=== PATIENT | male | born 1960 | race Caucasian/White ===

== ENCOUNTER 2018-05-09 13:39 | Emergency (ER) | payer MEDICARE, MEDICAID ==
[~2018-05-09] VITALS: Ht 177.8 cm; Wt 84.9 kg
[~2018-05-09 13:39] MED LIST: CA C1TAB60 PO; CHOLESTEROL MED; FOLI-17 PO; METH2.5T PO; NITR100C56 PO; OXYC5SOL8 PO; PHEN100T90 PO; TAMS-11 PO; [UNRECOGNIZED DRUG - REMARK]
[2018-05-09 13:48] VITALS: BP 119/76
[2018-05-09] MEDS ORDERED: ACETAMINOPHEN 500 MG TABLET ONE (14:14)
--- NOTE | 2018-05-09 14:22 | NUR ---
PT. IS A & O X 4 WITH C/O A COUGH. PT. STATES HE IS IMMUNOCOMPROMISED. PT.'S LUNGS ARE CTA. MM ARE PINK AND MOIST WITH PULSES +2 THROUGHOUT. PT. WAS TAKEN TO XRAY. PT. WAS MEDICATED ORDERED.
[2018-05-09] MEDS ORDERED: ACETAMINOPHEN 500 MG TABLET PO ONE (14:30)
[2018-05-09 14:44] LABS: RAPID INFLUENZA A Negative (Negative); RAPID INFLUENZA B Negative (Negative)
[2018-05-09 14:48] LABS: BASOPHILS # (AUTO) 0.03 x10^3/uL (0-0.1); BASOPHILS % (AUTO) 0 % (0-1); EOSINOPHILS # (AUTO) 0.14 x10^3/uL (0-0.4); EOSINOPHILS % (AUTO) 2 % (1-7); LYMPHOCYTES # (AUTO) 0.52 x10^3/uL (1-3.4); LYMPHOCYTES % (AUTO) 6 % (22-44); MD NO; MEAN CORPUSCULAR HEMOGLOBIN 28.4 pg (27.5-34.5); MEAN CORPUSCULAR HGB CONC 32.2 g/dL (33.2-36.2); MEAN CORPUSCULAR VOLUME 88.2 fL (81-97); MEAN PLATELET VOLUME 8.3 fL (7.4-10.4); MONOCYTES # (AUTO) 0.74 x10^3/uL (0.2-0.8); MONOCYTES % (AUTO) 8 % (2-9); NEUTROPHILS # (AUTO) 7.38 x10^3/uL (1.8-6.8); NEUTROPHILS % (AUTO) 84 % (42-75); PLATELET COUNT 263 x10^3/uL (130-400); RED BLOOD COUNT 4.64 x10^6/uL (4.38-5.82); RED CELL DISTRIBUTION WIDTH 17.7 % (9.4-14.8)
[2018-05-09 14:51] LABS: ANION GAP 5 mmol/L (5-15); CALCIUM 8.7 mg/dL (8.5-10.1); CHLORIDE 106 mmol/L (98-107)
[2018-05-09 14:53] LABS: CREATININE 0.77 mg/dL (0.7-1.3)
== END 2018-05-09 15:57 | disposition home or self-care (01) ==
LOC: ED 15:18
DX: B34.9 Viral infection, unspecified (principal); N28.9 Disorder of kidney and ureter, unspecified; Z87.891 Personal history of nicotine dependence
CPT/HCPCS: 36415; 71046; 80048; 85025; 87400; 99284

== ENCOUNTER 2019-11-28 20:25 | Emergency (ER) | payer MEDICARE, MEDICAID ==
[~2019-11-28] VITALS: Ht 177.8 cm; Wt 79.6 kg
[2019-11-28] MEDS ORDERED: CARBAMIDE PEROXIDE EAR DROPS 6.5%, 15ML LEFT EAR ONE (21:30)
[2019-11-28] MEDS ORDERED: CARBAMIDE PEROXIDE EAR DROPS 6.5%, 15ML ONE (21:57)
[2019-11-28 22:27] VITALS: BP 100/54
--- NOTE | 2019-11-28 22:31 | NUR ---
LEFT EAR IRRIGATED. APPROX 1CM IN DIAMETER HARD PACKED SERRUMEN REMOVED. PT STATES "OH MY GOSH I CAN HEAR AGAIN." PT HAS HAD CALL LIGHT IN REACH FOR DURATION OF TIME IN ROOM. PT IN NO SIGNS OF DISTRESS. AWAITING D/C PAPERWORK.
== END 2019-11-28 22:54 | disposition home or self-care (01) ==
LOC: ED 22:00
DX: H60.502 Unspecified acute noninfective otitis externa, left ear (principal); H61.22 Impacted cerumen, left ear; F17.210 Nicotine dependence, cigarettes, uncomplicated; M19.90 Unspecified osteoarthritis, unspecified site
CPT/HCPCS: 69210; 99284; 99406

== ENCOUNTER 2020-10-25 16:22 | Emergency (ER) | payer MEDICAID, MEDICARE ==
[~2020-10-25] VITALS: Ht 177.8 cm; Wt 85.3 kg
[~2020-10-25 16:22] MED LIST changes: -FOLI-17 PO; +FOLI1TAB32 PO
[2020-10-25 16:41] VITALS: BP 141/78
[2020-10-25] MEDS ORDERED: ACETAMINOPHEN 500 MG TABLET ONE (16:50)
[2020-10-25] MEDS ORDERED: ACETAMINOPHEN 500 MG TABLET PO ONE (17:00)
== END 2020-10-25 17:14 ==
LOC: ED 16:40
DX: L03.113 Cellulitis of right upper limb (principal); R00.0 Tachycardia, unspecified; M19.90 Unspecified osteoarthritis, unspecified site
CPT/HCPCS: 82962; 99283; 99284